=== PATIENT | male | born 1965 | race African-American/Black ===

== ENCOUNTER 2016-11-18 12:23 | Emergency (ER) | payer OTHER ==
[~2016-11-18] VITALS: Ht 182.9 cm; Wt 104.0 kg
[2016-11-18] MEDS ORDERED: IBUPROFEN 800MG TABLET PO ONE (13:30)
[2016-11-18] MEDS ORDERED: TETRACAINE 0.5% OPHTH DROPS 4ML LEFTEYE ONE (13:30)
[2016-11-18 13:35] VITALS: BP 120/81
[2016-11-18] MEDS ORDERED: FLUORESCEIN SODIUM 1MG/STRIP LEFTEYE ONE (13:45)
== END 2016-11-18 17:40 | disposition home or self-care (01) ==
LOC: ER 13:10
DX: S01.81XA Laceration without foreign body of other part of head, initial encounter (principal); S00.12XA Contusion of left eyelid and periocular area, initial encounter; H11.32 Conjunctival hemorrhage, left eye; Z72.0 Tobacco use; F12.10 Cannabis abuse, uncomplicated; W20.8XXA Other cause of strike by thrown, projected or falling object, initial encounter; Y93.55 Activity, bike riding; Y92.89 Other specified places as the place of occurrence of the external cause; Y99.8 Other external cause status
CPT/HCPCS: 70486; 99284